=== PATIENT | female | born 1955 | race Caucasian/White ===

== ENCOUNTER 2024-12-18 13:58 | Inpatient (IN) | payer OTHER ==
[~2024-12-18] VITALS: Ht 157.5 cm; Wt 58.1 kg
[2024-12-18 14:40] VITALS: BP 133/80
[2024-12-18] MEDS ORDERED: PRISTIQ100 MG PO (15:16)
[2024-12-18 15:31] LABS: BASO # 0.0 10*3/uL (0.0-0.1); BASO % 0.5 % (0.0-1.0); EOS # 0.1 10*3/uL (0.0-0.4); EOS % 1.1 % (1.0-4.0); MEAN CELL VOLUME 92.8 fl (81.0-99.0); MEAN CORPUSCULAR HGB 30.9 pg (27.0-31.0); MEAN PLATELET VOLUME 8.4 fl (9.6-12.3); MONO # 0.5 10*3/uL (0.1-1.0); MONO % 7.4 % (3.0-9.0); NEUT # 4.2 10*3/uL (2.3-7.9); NEUT % 65.7 % (47.0-73.0); NUCLEATED RED BLOOD CELL 0.0 % (0.0-0.0); NUCLEATED RED BLOOD CELL 0.0 10*3/uL (0.0-0.0); PLATELET COUNT AUTOMATED 175 10*3/uL (130-400); RED CELL DISTRI WIDTH 12.5 % (0-14.5)
[2024-12-18 15:42] LABS: ACT PARTIAL THROMBO TIME 29.7 SECONDS (20.0-32.1)
[2024-12-18 15:51] LABS: BILIRUBIN Negative (Negative); BLOOD Negative (Negative); CLARITY Clear (Clear); COLOR Yellow (Yellow); KETONE 1+ (Negative); LEUKO ESTERASE Trace (Negative); NITRITE Negative (Negative); PH 6.0 (4.5-8.0); SPECIFIC GRAVITY 1.010 (1.001-1.030); UROBILINOGEN 0.2 E.U./dl (0.0-1.0)
[2024-12-18 16:00] LABS: BUN 10 mg/dl (9-23); CPK 36 U/L (34-171); ETHYL ALCOHOL 3.2 mg/dl (<3); SGPT/ALT 10 U/L (5-49)
[2024-12-18 16:01] LABS: URINE AMPHETAMINES Negative (1000ng/ml); URINE BARBITURATES Negative (200ng/ml); URINE BENZODIAZEPINES Negative (200ng/ml); URINE CANNABINOIDS (THC) Negative (50ng/ml); URINE COCAINE Negative (300ng/ml); URINE METHADONE Negative (300ng/ml); URINE OPIATES Negative (300ng/ml); URINE PHENCYCLIDINE Negative (25ng/ml)
[2024-12-18 16:15] LABS: BACTERIA TRACE; RBC 0-2 rbc/hpf (0-2)
[2024-12-18 16:16] LABS: MUCOUS 1+
[2024-12-18 20:00] VITALS: BP 126/58
[2024-12-18] MEDS ORDERED: LORazepam 0.5 MG TAB PO PRN (21:15)
[2024-12-18] MEDS ORDERED: hydrOXYzine hydrochloride 50 MG/ML VIAL IM PRN (21:50)
[2024-12-18] MEDS ORDERED: ACETAMINOPHEN 325 MG TAB PO PRN (21:50)
[2024-12-18] MEDS ORDERED: MG-AL HYDROXIDE/SIMETICONE 30 ML UDC PO PRN (21:50)
[2024-12-18] MEDS ORDERED: Menthol/Zinc Oxide 4 GM THIN T PRN (21:55)
[2024-12-19 07:41] LABS: BASO # 0.0 10*3/uL (0.0-0.1); BASO % 0.4 % (0.0-1.0); EOS # 0.2 10*3/uL (0.0-0.4); EOS % 2.2 % (1.0-4.0); MEAN CELL VOLUME 92.3 fl (81.0-99.0); MEAN CORPUSCULAR HGB 31.3 pg (27.0-31.0); MEAN PLATELET VOLUME 8.6 fl (9.6-12.3); MONO # 0.6 10*3/uL (0.1-1.0); MONO % 9.4 % (3.0-9.0); NEUT # 3.4 10*3/uL (2.3-7.9); NEUT % 49.0 % (47.0-73.0); NUCLEATED RED BLOOD CELL 0.0 % (0.0-0.0); NUCLEATED RED BLOOD CELL 0.0 10*3/uL (0.0-0.0); PLATELET COUNT AUTOMATED 191 10*3/uL (130-400); RED CELL DISTRI WIDTH 12.4 % (0-14.5)
[2024-12-19 08:00] VITALS: BP 119/75
[2024-12-19 08:59] LABS: BUN 10 mg/dl (9-23); LDL CHOLESTEROL 85 mg/dL (9-159)
[2024-12-19] MEDS ORDERED: DEXTROMETHORPHAN PO SCH (09:00)
[2024-12-19] MEDS ORDERED: BUPROPION PO SCH (09:00)
[2024-12-19 09:04] LABS: SGPT/ALT < 7 U/L (5-49)
[2024-12-19 10:56] LABS: VITAMIN D, 25-HYDROXY 36.5 ng/mL (30-100)
[2024-12-19] MEDS ORDERED: MED. FROM HOME 1 EACH EA PO SCH (14:23)
[2024-12-19 20:00] VITALS: BP 136/76
[2024-12-19] MEDS ORDERED: RAMELTEON 8 MG TAB PO SCH (21:00)
[2024-12-20 08:54] VITALS: BP 107/69
[2024-12-20 20:00] VITALS: BP 129/90
[2024-12-20] MEDS ORDERED: MED. FROM HOME 1 EACH EA PO SCH (21:00)
[2024-12-21 08:00] VITALS: BP 128/70
[2024-12-21 20:00] VITALS: BP 130/91; BP 132/91
[2024-12-21] MEDS ORDERED: Mirtazapine 15 MG TAB PO SCH (21:00)
[2024-12-22 08:09] VITALS: BP 133/67
[2024-12-22 20:00] VITALS: BP 143/78
[2024-12-23 08:09] VITALS: BP 132/81
[2024-12-23 20:00] VITALS: BP 99/65
[2024-12-24 08:39] VITALS: BP 171/84
[2024-12-24 22:00] VITALS: BP 111/64
[2024-12-25 07:10] LABS: BASO # 0.1 10*3/uL (0.0-0.1); BASO % 0.7 % (0.0-1.0); EOS # 0.3 10*3/uL (0.0-0.4); EOS % 3.6 % (1.0-4.0); MEAN CELL VOLUME 96.0 fl (81.0-99.0); MEAN CORPUSCULAR HGB 30.8 pg (27.0-31.0); MEAN PLATELET VOLUME 8.7 fl (9.6-12.3); MONO # 0.7 10*3/uL (0.1-1.0); MONO % 9.8 % (3.0-9.0); NEUT # 3.4 10*3/uL (2.3-7.9); NEUT % 48.5 % (47.0-73.0); NUCLEATED RED BLOOD CELL 0.0 % (0.0-0.0); NUCLEATED RED BLOOD CELL 0.0 10*3/uL (0.0-0.0); PLATELET COUNT AUTOMATED 178 10*3/uL (130-400); RED CELL DISTRI WIDTH 13.2 % (0-14.5)
[2024-12-25 07:34] LABS: BUN 9 mg/dl (9-23)
[2024-12-25 07:44] LABS: SGPT/ALT < 7 U/L (5-49)
[2024-12-25 08:00] VITALS: BP 127/73
[2024-12-25 20:00] VITALS: BP 134/76
[2024-12-25] MEDS ORDERED: Memantine Hydrochloride 5 MG TAB PO SCH (21:00)
[2024-12-26 08:00] VITALS: BP 156/99
[2024-12-26 20:00] VITALS: BP 117/66
[2024-12-27 08:00] VITALS: BP 151/89
[2024-12-27 20:00] VITALS: BP 131/76
[2024-12-28 08:00] VITALS: BP 153/83
[2024-12-28] MEDS ORDERED: [UNRECOGNIZED DRUG - OTHER] PO ONE (08:45)
[2024-12-28 20:00] VITALS: BP 121/66
[2024-12-29 08:00] VITALS: BP 127/91
[2024-12-29] MEDS ORDERED: [UNRECOGNIZED DRUG - OTHER] PO ONE (08:35)
[2024-12-29 20:00] VITALS: BP 144/77
[2024-12-29] MEDS ORDERED: Mirtazapine 15 MG TAB PO SCH (21:00)
[2024-12-30 09:21] VITALS: BP 154/91
[2024-12-30 20:00] VITALS: BP 114/82
[2024-12-31 07:40] LABS: BASO # 0.1 10*3/uL (0.0-0.1); BASO % 0.9 % (0.0-1.0); EOS # 0.2 10*3/uL (0.0-0.4); EOS % 4.3 % (1.0-4.0); MEAN CELL VOLUME 96.0 fl (81.0-99.0); MEAN CORPUSCULAR HGB 31.0 pg (27.0-31.0); MEAN PLATELET VOLUME 8.5 fl (9.6-12.3); MONO # 0.5 10*3/uL (0.1-1.0); MONO % 8.8 % (3.0-9.0); NEUT # 2.5 10*3/uL (2.3-7.9); NEUT % 44.8 % (47.0-73.0); NUCLEATED RED BLOOD CELL 0.0 % (0.0-0.0); NUCLEATED RED BLOOD CELL 0.0 10*3/uL (0.0-0.0); PLATELET COUNT AUTOMATED 158 10*3/uL (130-400); RED CELL DISTRI WIDTH 12.7 % (0-14.5)
[2024-12-31 08:11] LABS: BUN 10 mg/dl (9-23); SGPT/ALT 12 U/L (5-49)
[2024-12-31 08:42] VITALS: BP 136/66
[2024-12-31] MEDS ORDERED: [UNRECOGNIZED DRUG - OTHER] PO ONE ×2 (09:00→09:25)
[2024-12-31] MEDS ORDERED: [UNRECOGNIZED DRUG - OTHER] PO SCH (12:00)
[2024-12-31 20:00] VITALS: BP 127/78
[2025-01-01 08:00] VITALS: BP 142/79
[2025-01-01 20:00] VITALS: BP 141/78
[2025-01-02 09:08] VITALS: BP 133/74
[2025-01-02 20:00] VITALS: BP 138/77
[2025-01-03 08:00] VITALS: BP 138/77
[2025-01-03 20:00] VITALS: BP 138/90
[2025-01-04 09:34] VITALS: BP 135/77
[2025-01-04] MEDS ORDERED: MEMANTINE HCL10 MG PO (09:47)
[2025-01-04] MEDS ORDERED: CLONAZEPAM1 MG PO (09:47)
[2025-01-04] MEDS ORDERED: METHYLPHENIDATE5 M1 PO (09:47)
[2025-01-04] MEDS ORDERED: HOMEMED PO (09:47)
== END 2025-01-04 10:26 | disposition home or self-care (01) | DRG 885 ==
LOC: ED 13:58 → 3N 16:48
PROVIDERS: Counselor Professional; Internal Medicine; ADMIT Psychiatry & Neurology Psychiatry; ATTEND Psychiatry & Neurology Psychiatry
PROC: GZHZZZZ Group Psychotherapy (ICD-10-PCS; principal; 2025-01-01)
DX: F33.2 Major depressive disorder, recurrent severe without psychotic features (principal); E44.0 Moderate protein-calorie malnutrition; E72.20 Disorder of urea cycle metabolism, unspecified; I10 Essential (primary) hypertension; E86.0 Dehydration; F41.1 Generalized anxiety disorder; R73.9 Hyperglycemia, unspecified; Z90.49 Acquired absence of other specified parts of digestive tract; Z82.49 Family history of ischemic heart disease and other diseases of the circulatory system